=== PATIENT | female | born 1945 | race Two or more races ===

== ENCOUNTER 2020-01-29 19:10 | Emergency (ER) | payer MEDICARE ==
--- NOTE | 2020-01-29 19:54 | ED ---
Fall HPI - General Chief Complaint: Fall Stated Complaint: Hip, Pelvis pain Time Seen by Provider: 01/29/20 19:42 Source: patient, family Mode of arrival: ambulatory - History of Present Illness Initial Comments: Patient is a 74-year-old female presenting to the emergency department after falling approximately 4 hours prior to arrival. Patient states she slipped and fell on some wet plywood at her house. She states she landed mostly on her left side. Patient did hit her head on the left side, above her left ear. She denies loss of consciousness. She denies being on a blood thinner. She states she did have a small bump above her left ear but states that is going down now. She is also complaining of left hip pain. Patient states she is able to ambulate but is having significant pain into her anterior left hip and into her groin. She denies any previous hip or knee surgeries. She denies being dizzy, nauseous, vomiting. She denies any abdominal pain. She states she did take some Tylenol after she fell. Her pain is minimal at rest. She has no other complaints at this time. Upon arrival to the ER her vital signs are stable. - Related Data Allergies Allergy/AdvReac Type Severity Reaction Status Date / Time Penicillins Allergy Swelling Verified 01/29/20 19:21 Review of Systems ROS Statement: Those systems with pertinent positive or pertinent negative responses have been documented in the HPI. ROS Other: All systems not noted in ROS Statement are negative. Past Medical History Past Medical History: GERD/Reflux History of Any Multi-Drug Resistant Organisms: None Reported Past Surgical History: No Surgical Hx Reported Past Psychological History: No Psychological Hx Reported Smoking Status: Former smoker Past Alcohol Use History: Occasional Past Drug Use History: None Reported General Exam - General Exam Comments Initial Comments: GENERAL: Well-appearing, well-nourished and in no acute distress. HEAD: Atraumatic, normocephalic. Patient has mild pain with palpation above her left ear as well as a small abrasion. No hematoma. EYES: Pupils equal round and reactive to light, extraocular movements intact, sclera anicteric, conjunctiva are normal. ENT: TMs normal, nares patent, oropharynx clear without exudates. Moist mucous membranes. NECK: Normal range of motion, supple without lymphadenopathy or JVD. No tenderness. LUNGS: Breath sounds clear to auscultation bilaterally and equal. No wheezes rales or rhonchi. HEART: Regular rate and rhythm without murmurs, rubs or gallops. ABDOMEN: Soft, nontender, normoactive bowel sounds. No guarding, no rebound. No masses appreciated. : Deferred EXTREMITIES: Patient has pain and left hip with trunk flexion, minimal with hip flexion. Pain with palpation of the anterior hip. She is neurovascular intact. No pain of the left upper leg or knee. No pitting or edema. No clubbing or cyanosis. NEUROLOGICAL: Cranial nerves II through XII grossly intact. Normal speech, normal gait. PSYCH: Normal mood, normal affect. SKIN: Warm, Dry, normal turgor, no rashes or lesions noted. Limitations: no limitations Course Vital Signs 01/29/20 19:16 Temperature 98.1 F Pulse Rate 68 Respiratory 18 Rate Blood Pressure 146/86 O2 Sat by Pulse 98 Oximetry Medical Decision Making - Medical Decision Making Patient is a 74-year-old female here after falling at her house approximate 4 hours prior to arrival. She is complaining of hitting the left side of her head, no LOC, she is not on thinners. Patient is only having a very mild headache where she hit. Patient is also complaining of left hip pain. X-rays of the left hip and pelvis reveal no acute fractures/dislocations. CT of the brain reveals no acute abnormalities. Patient was given Toradol in the ER. She is stable for discharge. Patient is agreeable with this plan of care. Return parameters were discussed with the patient she verbalized understanding. Case discussed with Dr. Newman. Disposition Clinical Impression: Fall, Pain in left hip, Headache Disposition: HOME SELF-CARE Condition: Stable Instructions (If sedation given, give patient instructions): Fall Prevention (ED) Additional Instructions: Please return to the Emergency Department if symptoms worsen or any other concerns. May use heat and/or ice on the hip for pain relief. I recommend anti-inflammatories for pain. Follow up with PCP. Is patient prescribed a controlled substance at d/c from ED?: No Referrals: Hari Key MD [Primary Care Provider] - 1-2 days
--- NOTE | 2020-01-29 20:32 | CT ---
EXAMINATION TYPE: CT brain wo con DATE OF EXAM: 01/29/2020 COMPARISON: None HISTORY: fall CT DLP: 1095.4 mGycm Automated exposure control for dose reduction was used. Ventricles and sulci appear normal for age. There is no mass effect nor midline shift. There is no si gn of intracranial hemorrhage. Calvarium is intact. Skull base is intact. IMPRESSION: Mild atrophy appropriate for age. No acute intracranial abnormality.
--- NOTE | 2020-01-29 20:33 | XR ---
EXAMINATION TYPE: XR Hip LT and AP Pelvis DATE OF EXAM: 01/29/2020 COMPARISON: NONE HISTORY: Hip pain TECHNIQUE: 3 views FINDINGS: Pelvic ring is intact. Proximal left femur and hip joint appear normal. There is no sign of hip dysplasia. Sacroiliac joints appear normal. There is some spurring of the right hip joint. There is right hip joint mild joint space narrowing. 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 No abnormalities seen of the left hip. No fracture .
[2020-01-29] MEDS ORDERED: KETOROLAC 30 MG/ML 1 ML VIAL IM STA (20:40)
[2020-01-29 20:56] VITALS: BP 137/79; PULSE 65; RESP 16; TEMP 98
== END 2020-01-29 20:56 | disposition home or self-care (01) ==
LOC: EC 19:10
DX: S09.90XA Unspecified injury of head, initial encounter (principal); M25.552 Pain in left hip; Z88.0 Allergy status to penicillin; Z87.891 Personal history of nicotine dependence; W01.10XA Fall on same level from slipping, tripping and stumbling with subsequent striking against unspecified object, initial encounter
CPT/HCPCS: 73502; 70450; 99284; 96372; J1885

== ENCOUNTER → 2024-03-03 | Outpatient (CLI) | payer MEDICARE ==
--- NOTE | 2024-03-10 21:51 | MR ---
EXAMINATION TYPE: MR shoulder LT wo con DATE OF EXAM: 03/03/2024 COMPARISON: Outside left shoulder x-ray February 18, 2024 HISTORY: Left shoulder pain for 2 to 3 years. TECHNIQUE: Multiplanar, multisequence imaging of the left shoulder is performed without contrast. FINDINGS: Rotator Cuff: Intact supraspinatus and infraspinatus tendons. Intact subscapularis tendon. Rotator cu ff muscle bulk is preserved. Acromioclavicular Joint: Mild to moderate capsular hypertrophy with subchondral cystic change. Mild/m oderate spurring. No suspicious narrowing. Glenohumeral Joint: Small joint effusion. No significant spurring. Narrowing is seen with subchondral cystic change involving the osseous glenoid Labrum: Heterogeneous increased signal superior labrum favoring degenerative tear. Biceps Tendon: The long head of biceps is in normal location within bicipital groove. Intracapsular p ortion not well seen but likely intact. Bone marrow signal: Additional subchondral cystic change involving the posterior-superior aspect of t he humeral head. Other: No additional significant abnormality is appreciated. IMPRESSION: 1. At least moderate degenerative changes greatest involving the glenohumeral joint as detailed above . 2. Superior labral tear likely degenerative in etiology. 3. No rotator cuff tear is seen.
== END | disposition home or self-care (01) ==
LOC: RADMRIMAIN 11:04
PROVIDERS: ATTEND Orthopaedic Surgery
DX: S43.432A Superior glenoid labrum lesion of left shoulder, initial encounter (principal); M19.012 Primary osteoarthritis, left shoulder

== ENCOUNTER 2024-07-11 17:51 | Emergency (ER) | payer MEDICARE ==
[2024-07-11 18:04] VITALS: BP 150/82; PULSE 70; RESP 22; TEMP 98.6
--- NOTE | 2024-07-11 18:35 | ED ---
General Adult HPI - General Chief complaint: Extremity Problem,Nontraumatic Stated complaint: R leg pain/swelling Time Seen by Provider: 07/11/24 17:59 Source: patient, RN notes reviewed, old records reviewed Mode of arrival: ambulatory Limitations: no limitations - History of Present Illness Initial comments: 78-year-old female presenting for evaluation of pain and swelling to the right leg. Patient did note some erythema on the lateral aspect of the leg and swelling from the mid calf to the foot. She has had no fever. No chest pain or shortness of breath. - Related Data Home Medications Medication Instructions Recorded Confirmed Biotin [Biotin Disolve] 10,000 mcg PO BID 07/11/24 07/11/24 Doxylamine Succinate [Unisom] 25 mg PO HS 07/11/24 07/11/24 Ergocalciferol (Vitamin D2) 1,250 mcg PO ESTRADA 07/11/24 07/11/24 [Drisdol (50,000 Iu)] Ferrous Sulfate [Feosol] 325 mg PO DAILY 07/11/24 07/11/24 Lansoprazole [Prevacid] 30 mg PO BID 07/11/24 07/11/24 Magnesium Glycinate 240 mg PO BID 07/11/24 07/11/24 Rosuvastatin Calcium [Crestor] 5 mg PO HS 07/11/24 07/11/24 Previous Rx's Medication Instructions Recorded Cephalexin [Keflex] 500 mg PO Q6HR 10 Days #40 cap 07/11/24 Allergies Allergy/AdvReac Type Severity Reaction Status Date / Time Penicillins Allergy Swelling/Ra Verified 07/11/24 18:42 sh/Hives Review of Systems ROS Statement: Those systems with pertinent positive or pertinent negative responses have been documented in the HPI. ROS Other: All systems not noted in ROS Statement are negative. Past Medical History Past Medical History: GERD/Reflux, Hyperlipidemia History of Any Multi-Drug Resistant Organisms: None Reported Past Surgical History: Appendectomy, Back Surgery, Breast Surgery, Cholecystectomy, Hysterectomy, Tonsillectomy Additional Past Surgical History / Comment(s): gastric bypass Past Psychological History: No Psychological Hx Reported Past Alcohol Use History: Occasional Past Drug Use History: None Reported General Exam Limitations: no limitations General appearance: alert, in no apparent distress Head exam: Present: atraumatic, normocephalic Eye exam: Present: normal appearance, PERRL Neck exam: Present: normal inspection Respiratory exam: Present: normal lung sounds bilaterally. Absent: respiratory distress, wheezes Cardiovascular Exam: Present: regular rate, normal rhythm GI/Abdominal exam: Present: soft. Absent: distended, tenderness Extremities exam: Present: pedal edema, other (Area of cellulitis approximately 4 cm round on the lateral aspect of the right lower leg just above the lateral malleolus.). Absent: calf tenderness Neurological exam: Present: alert, oriented X3, CN II-XII intact. Absent: motor sensory deficit Psychiatric exam: Present: normal affect, normal mood Skin exam: Present: warm Course Vital Signs 07/11/24 17:59 Temperature 98.6 F Pulse Rate 70 Respiratory 22 Rate Blood Pressure 150/82 O2 Sat by Pulse 99 Oximetry Medical Decision Making - Medical Decision Making Was pt. sent in by a medical professional or institution (JERAD Ye, [employer], urgent care, hospital, or custodial...) When possible be specific @ -[No] Did you speak to anyone other than the patient for history (EMS, parent, family, police, friend...)? What history was obtained from this source @ -[No] Did you review nursing and triage notes (agree or disagree)? Why? @ -[I reviewed and agree with nursing and triage notes] Were old charts reviewed (outside hosp., previous admission, EMS record, old EKG, old radiological studies, urgent care reports/EKG's, custodial records)? Report findings @ -[No old charts were reviewed] Differential Musculoskeletal Muscular strain, contusion, ligament sprain, fracture, arthritis, septic arthritis, bursitis, cellulitis, muscle spasm, nerve compression, DVT, arterial occlusion, herpes zoster, electrolyte abnormality, tumor.... This is not meant to be in all inclusive list EKG interpreted by me (3pts min.). @ -[As above] X-rays interpreted by me (1pt min.). @ -[None done] CT interpreted by me (1pt min.). @ -[None done] U/S interpreted by me (1pt. min.). @Ultrasound performed of the right lower extremity to rule out DVT, negative for DVT What testing was considered but not performed or refused? (CT, X-rays, U/S, labs)? Why? @ -[None] What meds were considered but not given or refused? Why? @ -[None] Did you discuss the management of the patient with other professionals (professionals i.e. , PA, [employer], lab, RT, psych nurse, social insurance specialist, jewish thought professor, teacher, navy senior officer, case work aide)? Give summary @ -[No] Was smoking cessation discussed for >3mins.? @ -[No] Was critical care preformed (if so, how long)? @ -[No] Were there social determinants of health that impacted care today? How? (Homelessness, low income, unemployed, alcoholism, drug addiction, transportation, low edu. Level, literacy, decrease access to med. care, residential, rehab)? @ -[No] Was there de-escalation of care discussed even if they declined (Discuss DNR or withdrawal of care, Hospice)? DNR status @ -[No] What co-morbidities impacted this encounter? (DM, HTN, Smoking, COPD, CAD, Cancer, CVA, ARF, Chemo, Hep., AIDS, mental health diagnosis, sleep apnea, morbid obesity)? @ -[None] Was patient admitted / discharged? Hospital course, mention meds given and route, prescriptions, significant lab abnormalities, going to OR and other per tinent info. @78-year-old female with pain and swelling to the right lower extremity, and area of cellulitis on exam approximately 4 cm round. Ultrasound was performed to rule out DVT this was negative. Patient afebrile and otherwise well- appearing. Will be started on oral antibiotics. Undiagnosed new problem with uncertain prognosis? @ -[No] Drug Therapy requiring intensive monitoring for toxicity (Heparin, Nitro, Insulin, Cardizem)? @ -[No] Were any procedures done? @ -[No] Diagnosis/symptom? @ -Cellulitis Acute, or Chronic, or Acute on Chronic? @ -[default] Uncomplicated (without systemic symptoms) or Complicated (systemic symptoms)? @ -[default] Side effects of treatment? @ -[No] Exacerbation, Progression, or Severe Exacerbation? @ -[No] Poses a threat to life or bodily function? How? (Chest pain, [place], [place], pneumonia, PE, COPD, DKA, ARF, appy, cholecystitis, CVA, Diverticulitis, Homicidal, Suicidal, threat to staff... and all critical care pts) @ -[No] Disposition Clinical Impression: Cellulitis Disposition: HOME SELF-CARE Condition: Good Instructions (If sedation given, give patient instructions): Cellulitis (ED) Prescriptions: Cephalexin [Keflex] 500 mg PO Q6HR 10 Days #40 cap Is patient prescribed a controlled substance at d/c from ED?: No Referrals: Maulik Ogden MD [Primary Care Provider] - 1-2 days Time of Disposition: 19:55
[2024-07-11] MEDS: CEPHALEXIN 500 MG CAP PO STA (19:50)
--- NOTE | 2024-07-11 19:54 | US ---
EXAMINATION TYPE: US venous doppler duplex LE RT DATE OF EXAM: 07/11/2024 7:04 PM COMPARISON: NONE CLINICAL INDICATION: Female, 78 years old with history of swelling; , Pain, Swelling, no injury TECHNIQUE: The lower extremity deep venous system is examined utilizing real time linear array sonog oscar with graded compression, color doppler sonography, and spectral doppler. SIDE PERFORMED: Right FINDINGS: VESSELS IMAGED: Common Femoral Vein Deep Femoral Vein Greater Saphenous Vein * Femoral Vein Popliteal Vein Small Saphenous Vein * Proximal Calf Veins Posterior tibial veins (* superficial vessels) Right Leg: Negative for DVT at time of scan IMPRESSION: No evidence for DVT within the right lower extremity. [facility], , 07/11/2024 7:52 PM
== END 2024-07-11 20:50 | disposition home or self-care (01) ==
LOC: EC 17:51
CPT/HCPCS: 99283